=== PATIENT | male | born 1990 | race Caucasian/White ===

== ENCOUNTER 2022-05-30 17:48 | Emergency (ER) | payer OTHER ==
[~2022-05-30] VITALS: Ht 182.9 cm; Wt 102.1 kg
[2022-05-30 19:47] VITALS: BP 134/80
== END 2022-05-30 19:47 | disposition home or self-care (01) ==
LOC: ER 18:05
DX: S00.33XA Contusion of nose, initial encounter (principal); W20.8XXA Other cause of strike by thrown, projected or falling object, initial encounter; Y93.B3 Activity, free weights; Y92.89 Other specified places as the place of occurrence of the external cause
CPT/HCPCS: 70160; 99283